=== PATIENT | male | born 1990 | race Two or more races ===

== ENCOUNTER 2022-12-31 11:51 | Inpatient (IN) | payer OTHER, MEDICAID ==
[~2022-12-31] VITALS: Ht 175.3 cm; Wt 86.0 kg
[2022-12-31] MEDS ORDERED: MORPHINE SULFATE 4 MG/ML SYR/VIAL IV ONE (12:30)
[2022-12-31] MEDS ORDERED: ONDANSETRON HCL 4 MG/2 ML VIAL IV ONE (12:30)
[2022-12-31 12:41] LABS: Urine Bacteria NONE SEEN /hpf (None Seen); Urine Blood Negative /uL (Negative); Urine Clarity Clear (Clear); Urine Color Yellow (Yellow); Urine Mucus FEW (None Seen); Urine Protein, UAD TRACE (Negative); Urine Specific Gravity 1.021 (1.001-1.035); Urine Urobilinogen Normal (Negative); Urine WBC 1 /hpf (0 - 3); Urine pH 5.5 (5.0-8.0)
[2022-12-31 13:17] LABS: Basophils # (auto) 0 10 ^3/uL (0-0.2); Basophils % (auto) 0.3 % (0.0-2.0); Eosinophils # (auto) 0.3 10 ^3/uL (0-0.8); Eosinophils % (auto) 4.7 % (0.0-7.0); Hematocrit 38.6 % (41.0-53.0); Hemoglobin 12.6 g/dL (13.5-17.5); Lymphocytes # (auto) 1.2 10 ^3/uL (0.4-5.4); Lymphocytes % (auto) 22.2 % (10.0-50.0); Mean Corpuscular Hemoglobin 27.4 pg (28.0-32.0); Mean Corpuscular Hgb Conc. 32.6 g/dL (32.0-36.0); Mean Corpuscular Volume 84.1 fL (80.0-100.0); Monocytes # (auto) 0.7 10 ^3/uL (0-1.3); Monocytes % (auto) 12.3 % (0.0-12.0); Neutrophils # (auto) 3.3 10 ^3/uL (1.6-8.6); Neutrophils % (auto) 60.5 % (37.0-80.0); Red Blood Cells 4.58 10^6/uL (4.5-5.90); Red Cell Distribution Width 13.1 % (11.8-14.3); White Blood Cell 5.4 10^3/uL (4.4-10.8)
[2022-12-31 13:33] LABS: INR 1.14 (0.9-1.15); Partial Thromboplastin Time 31.7 SEC (24.5-34.5); Prothrombin Time 11.9 sec (9.3-11.8)
[2022-12-31 13:51] LABS: Alanine Aminotransferase 16 U/L (7-40); Albumin 4.1 g/dL (3.2-4.8); Alkaline Phosphatase 56 U/L (46-116); Anion Gap 6.7 (5-15); Aspartate Aminotransferase < 8 U/L (13-40); BUN/Creatinine Ratio 5.7 (10.0-20.0); Bilirubin, Total 0.4 mg/dL (0.2-1.0); Blood Urea Nitrogen 6 mg/dL (9-23); Calcium 8.8 mg/dL (8.5-10.1); Carbon Dioxide 28.3 mmol/L (20-30); Chloride 104 mmol/L (98-107); Glucose 99 mg/dL (74-106); Potassium 3.9 mmol/L (3.5-5.1); Sodium 139 mmol/L (136-145); Total Protein 6.5 g/dL (5.7-8.2)
[2022-12-31] MEDS ORDERED: PIPERACILLIN-TAZOB 3.375GM 100 ML IV ONE (14:00)
[2022-12-31] MEDS ORDERED: metroNIDAZOLE 500MG/100ML 100 ML IV ONE (14:00)
[2022-12-31] MEDS ORDERED: PANTOPRAZOLE 40 MG/10 ML VIAL INJ IV ONE (14:45)
[2022-12-31] MEDS ORDERED: MORPHINE SULFATE INJ 2 MG/ml SYRG IV PRN (14:45)
[2022-12-31] MEDS ORDERED: ONDANSETRON HCL 4 MG/2 ML VIAL IV PRN (14:45)
[2022-12-31] MEDS ORDERED: ACETAMINOPHEN 325 MG TAB PO PRN (14:45)
[2022-12-31] MEDS ORDERED: HYDROcodone-ACET 5/325MG TAB PO PRN (14:45)
[2022-12-31] MEDS: SODIUM CHLORIDE 0.9% 1,000 ML IV SCH ×2 (15:36→21:25)
[2022-12-31 16:59] VITALS: O2SAT 98
[2022-12-31] MEDS ORDERED: metroNIDAZOLE 500MG/100ML 100 ML IV SCH (22:00)
[2022-12-31] MEDS: PIPERACILLIN-TAZOB 3.375GM 100 ML IV SCH (22:38)
[2022-12-31] MEDS: PANTOPRAZOLE 40 MG/10 ML VIAL INJ IV SCH (22:39)
[2023-01-01] VITALS (7 sets, daily range): BP systolic 112–160; BP diastolic 54–74; PULSE 67–85; RESP 16–23; TEMP 98.4–98.8; O2SAT 96–100
[2023-01-01] MEDS: SODIUM CHLORIDE 0.9% 1,000 ML IV SCH ×2 (05:13→10:41)
[2023-01-01 06:01] LABS: Alkaline Phosphatase 46 U/L (46-116); BUN/Creatinine Ratio 6.4 (10.0-20.0); Blood Urea Nitrogen 6 mg/dL (9-23); Calcium 8.3 mg/dL (8.5-10.1); Chloride 105 mmol/L (98-107); Glucose 103 mg/dL (74-106); Potassium 3.7 mmol/L (3.5-5.1); Sodium 139 mmol/L (136-145)
[2023-01-01 06:02] LABS: Albumin 3.5 g/dL (3.2-4.8); Aspartate Aminotransferase < 8 U/L (13-40); Basophils # (auto) 0 10 ^3/uL (0-0.2); Basophils % (auto) 0.5 % (0.0-2.0); Bilirubin, Total 0.5 mg/dL (0.2-1.0); Eosinophils # (auto) 0.2 10 ^3/uL (0-0.8); Eosinophils % (auto) 3.5 % (0.0-7.0); Hematocrit 30.9 % (41.0-53.0); Hemoglobin 10.6 g/dL (13.5-17.5); Lymphocytes # (auto) 0.8 10 ^3/uL (0.4-5.4); Mean Corpuscular Hemoglobin 28.4 pg (28.0-32.0); Mean Corpuscular Hgb Conc. 34.3 g/dL (32.0-36.0); Mean Corpuscular Volume 82.6 fL (80.0-100.0); Monocytes # (auto) 0.7 10 ^3/uL (0-1.3); Monocytes % (auto) 14.9 % (0.0-12.0); Neutrophils # (auto) 2.8 10 ^3/uL (1.6-8.6); Neutrophils % (auto) 64.1 % (37.0-80.0); Red Blood Cells 3.74 10^6/uL (4.5-5.90); Red Cell Distribution Width 13.5 % (11.8-14.3); Total Protein 5.8 g/dL (5.7-8.2); White Blood Cell 4.4 10^3/uL (4.4-10.8)
[2023-01-01 06:19] LABS: Alanine Aminotransferase < 9 U/L (7-40)
[2023-01-01] MEDS: PIPERACILLIN-TAZOB 3.375GM 100 ML IV SCH ×2 (06:53→13:47)
[2023-01-01] MEDS: PANTOPRAZOLE 40 MG/10 ML VIAL INJ IV SCH (09:40)
[2023-01-01] MEDS: D5W/SOD CHL 0.45%/KCL 20MEQ 1,000 ML IV SCH ×2 (11:20→21:00)
[2023-01-01] MEDS: metroNIDAZOLE 500MG/100ML 100 ML IV SCH (23:44)
[2023-01-02] VITALS (7 sets, daily range): BP systolic 115–130; BP diastolic 49–61; PULSE 69–93; RESP 14–20; TEMP 97.8–98.8; O2SAT 96–100
[2023-01-02] MEDS: metroNIDAZOLE 500MG/100ML 100 ML IV SCH (06:00)
[2023-01-02 07:04] LABS: Chloride 105 mmol/L (98-107); Potassium 3.6 mmol/L (3.5-5.1); Sodium 139 mmol/L (136-145)
[2023-01-02 07:05] LABS: Anion Gap 5.9 (5-15); Calcium 8.6 mg/dL (8.7-10.4); Carbon Dioxide 28.1 mmol/L (20-30)
[2023-01-02] MEDS: D5W/SOD CHL 0.45%/KCL 20MEQ 1,000 ML IV SCH ×2 (07:07→17:00)
[2023-01-02 07:10] LABS: Glucose 93 mg/dL (74-106)
[2023-01-02 07:12] LABS: BUN/Creatinine Ratio 5.6 (10.0-20.0); Blood Urea Nitrogen < 5 mg/dL (9-23)
[2023-01-02 07:31] LABS: Basophils # (auto) 0 10 ^3/uL (0-0.2); Basophils % (auto) 0.8 % (0.0-2.0); Eosinophils # (auto) 0.3 10 ^3/uL (0-0.8); Eosinophils % (auto) 7.1 % (0.0-7.0); Hematocrit 31.8 % (41.0-53.0); Hemoglobin 10.6 g/dL (13.5-17.5); Lymphocytes # (auto) 0.7 10 ^3/uL (0.4-5.4); Lymphocytes % (auto) 15.4 % (10.0-50.0); Mean Corpuscular Hemoglobin 27.7 pg (28.0-32.0); Mean Corpuscular Hgb Conc. 33.5 g/dL (32.0-36.0); Mean Corpuscular Volume 82.8 fL (80.0-100.0); Monocytes # (auto) 0.6 10 ^3/uL (0-1.3); Monocytes % (auto) 12.1 % (0.0-12.0); Neutrophils % (auto) 64.6 % (37.0-80.0); Red Blood Cells 3.84 10^6/uL (4.5-5.90); Red Cell Distribution Width 13.2 % (11.8-14.3); White Blood Cell 4.7 10^3/uL (4.4-10.8)
[2023-01-02] MEDS ORDERED: cefTRIAXone 1GM/50ML D5W 50 ML IV SCH (09:00)
[2023-01-02] MEDS: PANTOPRAZOLE 40 MG/10 ML VIAL INJ IV SCH (09:11)
[2023-01-02] MEDS: PIPERACILLIN-TAZOB 3.375GM 100 ML IV SCH ×2 (15:40→21:00)
[2023-01-02] MEDS ORDERED: GOLYTELY 4L KIT PO ONE (17:00)
[2023-01-03] VITALS (8 sets, daily range): BP systolic 103–123; BP diastolic 47–67; PULSE 71–93; RESP 15–19; TEMP 97.7–98.3; O2SAT 93–100
[2023-01-03] MEDS: D5W/SOD CHL 0.45%/KCL 20MEQ 1,000 ML IV SCH ×3 (03:00→23:00)
[2023-01-03] MEDS: PIPERACILLIN-TAZOB 3.375GM 100 ML IV SCH ×4 (03:00→21:20)
[2023-01-03] MEDS ORDERED: POLYETHYLENE GLYCOL 17 GM PWDR PO ONE (06:00)
[2023-01-03] MEDS: PANTOPRAZOLE 40 MG/10 ML VIAL INJ IV SCH (10:47)
[2023-01-03] MEDS ORDERED: SODIUM CHLORIDE LOCK 10 ML ONE (15:37)
[2023-01-03] MEDS: diphenhdrAMINE HCL 50 MG/1 ML VL ONE ×2 (15:48→15:50)
[2023-01-03] MEDS: fentaNYL CITRATE 100 MCG/2 ML VL ONE ×2 (15:48→15:51)
[2023-01-03] MEDS: MIDAZOLAM HCL 5 MG/ML-1ML VIAL ONE ×3 (15:48→15:54)
[2023-01-03] MEDS ORDERED: fentaNYL CITRATE 100 MCG/2 ML VL ONE (15:54)
[2023-01-03] MEDS: methylPREDNISolone SOD SUCC 40 MG/ML VL IV SCH (18:15)
[2023-01-03] MEDS: MESALAMINE 400mg Delayed Release Cap PO SCH (21:20)
[2023-01-04] VITALS (7 sets, daily range): BP systolic 105–118; BP diastolic 60–68; PULSE 65–88; RESP 17–20; TEMP 97.6–98.4; O2SAT 96–99
[2023-01-04] MEDS: methylPREDNISolone SOD SUCC 40 MG/ML VL IV SCH ×4 (00:22→18:24)
[2023-01-04] MEDS: PIPERACILLIN-TAZOB 3.375GM 100 ML IV SCH ×4 (02:17→21:35)
[2023-01-04] MEDS: MESALAMINE 400mg Delayed Release Cap PO SCH ×3 (06:39→21:36)
[2023-01-04 08:29] LABS: Anion Gap 9.5 (5-15); Carbon Dioxide 24.5 mmol/L (20-30); Chloride 106 mmol/L (98-107); Potassium 4.1 mmol/L (3.5-5.1); Sodium 140 mmol/L (136-145)
[2023-01-04 08:30] LABS: Calcium 8.8 mg/dL (8.5-10.1)
[2023-01-04 08:35] LABS: Glucose 156 mg/dL (74-106)
[2023-01-04 08:47] LABS: BUN/Creatinine Ratio 5.6 (10.0-20.0); Blood Urea Nitrogen < 5 mg/dL (9-23)
[2023-01-04] MEDS: D5W/SOD CHL 0.45%/KCL 20MEQ 1,000 ML IV SCH ×2 (09:07→19:03)
[2023-01-04] MEDS: PANTOPRAZOLE 40 MG/10 ML VIAL INJ IV SCH (10:24)
[2023-01-04 10:36] LABS: Erythrocyte Sedimentation Rate 27 mm/hr (0-20)
[2023-01-05] MEDS: PIPERACILLIN-TAZOB 3.375GM 100 ML IV SCH (03:51)
[2023-01-05 05:00] VITALS: BP 105/69; PULSE 70; RESP 17; TEMP 97.6; O2SAT 97
[2023-01-05] MEDS: D5W/SOD CHL 0.45%/KCL 20MEQ 1,000 ML IV SCH (05:00)
[2023-01-05] MEDS: methylPREDNISolone SOD SUCC 40 MG/ML VL IV SCH ×2 (05:54)
[2023-01-05] MEDS: MESALAMINE 400mg Delayed Release Cap PO SCH (05:54)
[2023-01-05] MEDS ORDERED: METR-344 PO ×2 (07:54→10:51)
[2023-01-05] MEDS ORDERED: PRED20TA2 PO ×2 (07:54→10:51)
[2023-01-05] MEDS ORDERED: MESA400C PO ×2 (07:54→10:51)
[2023-01-05] MEDS ORDERED: LEVO500T91 PO ×2 (07:54→10:51)
[2023-01-05 08:00] VITALS: PULSE 56; RESP 20; O2SAT 98
[2023-01-05 08:52] VITALS: BP 112/61; PULSE 56; RESP 20; TEMP 97.4; O2SAT 98
[2023-01-05] MEDS ORDERED: PIPERACILLIN-TAZOB 3.375GM 100 ML IV SCH (10:00)
[2023-01-05] MEDS: PANTOPRAZOLE 40 MG/10 ML VIAL INJ IV SCH (10:19)
== END 2023-01-05 11:43 | disposition home or self-care (01) | DRG 386 ==
LOC: ER 11:51 → OVERFLOW 14:54 → WEST WING 01-01 09:25
PROVIDERS: ADMIT Nurse Practitioner Family; ATTEND Nurse Practitioner Acute Care
PROC: 0DBE8ZX Excision of Large Intestine, Via Natural or Artificial Opening Endoscopic, Diagnostic (ICD-10-PCS; principal; 2023-01-03 15:41)
DX: K51.00 Ulcerative (chronic) pancolitis without complications (principal); K57.92 Diverticulitis of intestine, part unspecified, without perforation or abscess without bleeding; D64.9 Anemia, unspecified; I10 Essential (primary) hypertension
CPT/HCPCS: 36415; 45380; 71045; 74176; 74177; 76705; 80048; 80053; 81001; 85025; 85048; 85610; 85652; 85730; 86141; 86850; 86900; 86901; 87177; 87493; C9113; G0378; J0696; J2250; J2405; J2543; J3490

== ENCOUNTER → 2023-03-19 | Outpatient (CLI) | payer OTHER, MEDICAID ==
[~2023-03-19] MED LIST: LEVO500T91 PO; MESA400C PO; METR-344 PO; PRED20TA2 PO
[2023-03-19 11:58] LABS: Basophils # (auto) 0 10 ^3/uL (0-0.2); Eosinophils # (auto) 0.1 10 ^3/uL (0-0.8); Lymphocytes # (auto) 1.1 10 ^3/uL (0.4-5.4); Monocytes # (auto) 0.4 10 ^3/uL (0-1.3)
[2023-03-19 12:01] LABS: Basophils % (auto) 0.5 % (0.0-2.0); Hematocrit 38.8 % (41.0-53.0); Hemoglobin 12.5 g/dL (13.5-17.5); Mean Corpuscular Hemoglobin 26.6 pg (28.0-32.0); Mean Corpuscular Hgb Conc. 32.2 g/dL (32.0-36.0); Mean Corpuscular Volume 82.5 fL (80.0-100.0); Monocytes % (auto) 5.8 % (0.0-12.0); Neutrophils # (auto) 5.5 10 ^3/uL (1.6-8.6); Neutrophils % (auto) 76.7 % (37.0-80.0); Nucleated Red Blood Cells % 0.1 %; Red Cell Distribution Width 15.6 % (11.8-14.3); White Blood Cell 7.1 10^3/uL (4.4-10.8)
[2023-03-19 12:40] LABS: Alanine Aminotransferase 26 U/L (7-40); Albumin 4.3 g/dL (3.2-4.8); Alkaline Phosphatase 65 U/L (46-116); Anion Gap 2 (5-15); Aspartate Aminotransferase 13 U/L (13-40); BUN/Creatinine Ratio 10.2 (10.0-20.0); Bilirubin, Total 0.4 mg/dL (0.2-1.0); Blood Urea Nitrogen 10 mg/dL (9-23); Calcium 8.9 mg/dL (8.7-10.4); Carbon Dioxide 30 mmol/L (20-30); Chloride 107 mmol/L (98-107); Glucose 102 mg/dL (74-106); Potassium 4.7 mmol/L (3.5-5.1); Sodium 139 mmol/L (136-145); Total Protein 6.8 g/dL (5.7-8.2)
== END | disposition home or self-care (01) ==
LOC: LAB 11:30
PROVIDERS: ATTEND Internal Medicine Gastroenterology
DX: K50.90 Crohn's disease, unspecified, without complications (principal)
CPT/HCPCS: 36415; 80053; 85025

== ENCOUNTER 2023-09-12 09:51 | Emergency (ER) | payer OTHER, MEDICAID ==
[~2023-09-12] VITALS: Ht 175.3 cm; Wt 92.6 kg
[2023-09-12 11:08] LABS: Basophils # (auto) 0 10 ^3/uL (0-0.2); Basophils % (auto) 0.5 % (0.0-2.0); Eosinophils # (auto) 0.1 10 ^3/uL (0-0.8); Eosinophils % (auto) 3.2 % (0.0-7.0); Hematocrit 40.2 % (41.0-53.0); Hemoglobin 13.2 g/dL (13.5-17.5); Lymphocytes # (auto) 1.3 10 ^3/uL (0.4-5.4); Lymphocytes % (auto) 34.1 % (10.0-50.0); Mean Corpuscular Hemoglobin 27.8 pg (28.0-32.0); Mean Corpuscular Hgb Conc. 32.7 g/dL (32.0-36.0); Monocytes # (auto) 0.5 10 ^3/uL (0-1.3); Monocytes % (auto) 12.9 % (0.0-12.0); Neutrophils # (auto) 1.9 10 ^3/uL (1.6-8.6); Neutrophils % (auto) 49.3 % (37.0-80.0); Nucleated Red Blood Cells % 0.1 %; Red Blood Cells 4.73 10^6/uL (4.5-5.90); Red Cell Distribution Width 15.9 % (11.8-14.3); White Blood Cell 3.8 10^3/uL (4.4-10.8)
[2023-09-12 11:33] LABS: Alanine Aminotransferase 27 U/L (7-40); Albumin 4.5 g/dL (3.2-4.8); Alkaline Phosphatase 72 U/L (46-116); Anion Gap 2 (5-15); Aspartate Aminotransferase 14 U/L (13-40); BUN/Creatinine Ratio 11.5 (10.0-20.0); Bilirubin, Total 0.5 mg/dL (0.2-1.0); Blood Urea Nitrogen 12 mg/dL (9-23); Calcium 9.4 mg/dL (8.5-10.1); Carbon Dioxide 31 mmol/L (20-30); Chloride 108 mmol/L (98-107); Glucose 94 mg/dL (74-106); Potassium 4.2 mmol/L (3.5-5.1); Sodium 141 mmol/L (136-145)
[2023-09-12 12:18] LABS: Lipase 39 U/L (12-53)
[2023-09-12 13:39] VITALS: BP 112/60; PULSE 67; RESP 16; TEMP 98.1; O2SAT 98
== END 2023-09-12 14:29 | disposition home or self-care (01) ==
LOC: ER 09:51
DX: R10.84 Generalized abdominal pain (principal); Z79.899 Other long term (current) drug therapy; Z88.8 Allergy status to other drugs, medicaments and biological substances
CPT/HCPCS: 36415; 74176; 80053; 83690; 85025

== ENCOUNTER 2024-07-30 10:09 | Inpatient (IN) | payer MEDICAID, OTHER ==
[~2024-07-30] VITALS: Ht 175.3 cm; Wt 84.3 kg
--- NOTE | 2024-07-30 10:37 | ED.PDOC ---
GI ASSESSMENT HPI Comments 34y M who presents to the ED for chief complaint of abdominal pain. Pt states he has been having abdominal pain for the past 5 days. Pt states the pain is suprapubic in location, constant, rating the pain 10/10, non-radiating with no associated exacerbating or relieving factors. Pt has associated diarrhea with associated fatigue but otherwise denies vomiting, diarrhea, fever , chills, dysuria, or hematuria. Pt states the diarrhea has associated blood and mucus. Pt states he had prior history of diverticulitis and UC and states he had flare up of his diverticulitis 1 year prior and states he was hospitalized at . Pt otherwise denies any other symptoms at this time. Chief Complaint: Abdominal Pain Time Seen by MD: 10:34 Reviewed Notes: Medications, Allergies Allergies: Coded Allergies: Metronidazole (Verified Allergy, Unknown, diarrhea, bloody stool, 01/02/23) Home Meds Active Scripts Prednisone (Prednisone) 20 Mg Tab, 40 MG PO DAILY, #60 MG Prov:DEMOND LOPEZ MD 01/05/23 Mesalamine (DELZICOL) 400 Mg Cap, 800 MG PO TID for 30 Days, #120 CAP 5 Refills Prov:DEMOND LOPEZ MD 01/05/23 Metronidazole (Flagyl) 500 Mg Tab, 1 TAB PO TID, #30 TAB Prov:DEMOND LOPEZ MD 01/05/23 Levofloxacin Hemihydrate (LEVAQUIN 500 MG) 500 Mg Tab, 1 TAB PO DAILY, #10 TAB Prov:DEMOND LOPEZ MD 01/05/23 Metronidazole (Flagyl) 500 Mg Tab, 1 TAB PO TID, #30 TAB Prov:DEMOND LOPEZ MD 01/05/23 Levofloxacin Hemihydrate (LEVAQUIN 500 MG) 500 Mg Tab, 1 TAB PO DAILY, #10 TAB Prov:DEMOND LOPEZ MD 01/05/23 Prednisone (Prednisone) 20 Mg Tab, 40 MG PO DAILY for 30 Days, #60 MG Prov:DEMOND LOPEZ MD 01/05/23 Mesalamine (DELZICOL) 400 Mg Cap, 800 MG PO TID, #60 CAP 5 Refills Prov:DEMOND LOPEZ MD 01/05/23 Information Source: Patient Mode of Arrival: Ambulatory Brought in by: self Timing: Days Duration: Since onset Prehospital treatment: None Quality: Aching Vomitus: None Stool: Blood Streaked Severity: Moderate Recent: None Recent Hx of: IBD Pain Location: Suprapubic Modifying Factors: Nothing Associated sign and symptoms: Diarrhea, Abdominal Pain, Blood in Stool Past Medical History Past Medical History (Other): Ulcerative colitis, Surgical History: Denies all surgeries Family History Family History: Family hx of heart latasha Family History (Other): Parkinsonism Social History Smoker: Non-Smoker Alcohol: Occasionally Drugs: Denies Drug Use Lives In: Home Constitutional: reports: fatigue; denies: chills, diaphoresis, fever, malaise, sweats, weakness, others EENTM: denies: blurred vision, double vision, ear bleeding, ear discharge, ear drainage, ear pain, ear ringing, eye pain, eye redness, hearing loss, mouth pain, mouth swelling, nasal discharge, nose bleeding, nose congestion, nose pain, photophobia, tearing, throat pain, throat swelling, voice changes, others Respiratory: denies: cough, hemoptysis, orthopnea, SOB at rest, shortness of breath, SOB with excertion, stridor, wheezing, others Cardiovascular: denies: chest pain, dizzy spells, diaphoresis, Dyspnea on exer tion, edema, irregular heart beat, left arm pain, lightheadedness, palpitations, PND, syncope, others Gastrointestinal: reports: abdominal pain, diarrhea; denies: abdomen distended, blood streaked bowels, constipated, dysphagia, difficulty swallowing, hematemesis, melena, nausea, poor appetite, poor fluid intake, rectal bleeding, rectal pain, vomiting, others Genitourinary: denies: burning, dysuria, flank pain, frequency, hematuria, incontinence, penile discharge, penile sore, pain, testicle pain, testicle swelling, urgency, others Neurological: denies: dizziness, fainting, headache, left sided numbness, left sided weakness, numbness, paresthesia, pre-existing deficit, right sided numbness, right sided weakness, seizure, speech problems, tingling, tremors, weakness, others Musculoskeletal: denies: back pain, gout, joint pain, joint swelling, muscle pain, muscle stiffness, neck pain, others Integumetry: denies: bruises, change in color, change in hair/nails, dryness, laceration, lesions, lumps, rash, wounds, others Allergic/Immunocompromised: denies: Difficulty Healing, Frequent Infections, Hives, Itching, others Hematologic/Lymphatic: denies: anemia, blood clots, easy bleeding, easy bruising, swollen glands, others Endocrine: denies: excessive hunger, excessive sweating, excessive thirst, excessive urination, flushing, intolerance to cold, intolerance to heat, unexplained weight gain, unexplained weight loss, others Psychiatric: denies: anxiety, bipolar disorder, depression, hopeless, panic disorder, schizophrenia, sleepless, suicidal, others All Other Systems: Reviewed and Negative Physical Exam General Appearance: Moderate Distress HEENT: Normal ENT Inspection, Pharynx Normal, TMs Normal Neck: Full Range of Motion, Non-Tender, Normal, Normal Inspection Respiratory: Chest Non-Tender, Lungs Clear, No Accessory Muscle Use, No Respiratory Distress, Normal Breath Sounds Cardiovascular: No Edema, No JVD, No Murmur, No Gallop, Normal Peripheral Pulses, Regular Rate/Rhythm Breast Exam: Deferred Gastrointestinal: Diffuse, No Organomegaly, No Pulsatile Mass, Normal Bowel Sounds, Soft, Tenderness Genitalia: Deferred Pelvic: Deferred Rectal: Deferred Extremities: No calf tenderness, Normal capillary refill, Normal inspection, Normal range of motion, Non-tender, No pedal edema Musculoskeletal : Apperance: Normal Neurologic: Alert, 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 Was a procedure done?: No GI differential Dx Differential Diagnosis: Constipation, Diverticular disease, Gastritis/PUD, Gastroenteritis, GI hemorrhage, Dehydration, Electrolyte Imbalance, Food Poisoning, Bacterial, Viral, Anemia X-Ray, Labs, Meds, VS Vital Signs Date Time Temp Pulse Resp B/P (MAP) Pulse Ox O2 Delivery O2 Flow Rate FiO2 07/30/24 11:14 80 18 138/62 07/30/24 11:03 97.6 83 18 142/60 (87) 97 97.6 07/30/24 11:03 83 18 97 Room Air 07/30/24 10:53 83 18 142/60 07/30/24 10:28 98.3 77 18 118/53 (74) 98 98.3 Lab Test 07/30/24 11:23 07/30/24 10:46 Range/Units Urine Color Yellow Yellow Urine Clarity Clear Clear Urine pH 7.0 5.0-9.0 Urine Specific [place] 1.027 1.001-1.035 Urine Protein Trace H Negative Urine Ketones Negative Negative Urine Blood Negative Negative /uL Urine Nitrite Negative Negative Urine Bilirubin Negative Negative Urine Urobilinogen Normal Negative mg/dL Urine Leukocyte Esterase Negative Negative /uL Urine RBC 4 0 - 3 /hpf Urine Microscopic WBC 1 0-3 /HPF Urine Squamous Epithelial Cells None seen <5 /hpf Urine Bacteria None seen None Seen /hpf Urine Glucose Normal Normal mg/dL White Blood Count 4.6 4.4-10.8 10^3/uL Red Blood Count 4.65 4.5-5.90 10^6/uL Hemoglobin 9.9 L 13.5-17.5 g/dL Hematocrit 31.9 L 41.0-53.0 % Mean Corpuscular Volume 68.6 L 80.0-100.0 fL Mean Corpuscular Hemoglobin 21.2 L 28.0-32.0 pg Mean Corpuscular Hemoglobin Concent 31.0 L 32.0-36.0 g/dL Red Cell Distribution Width 18.9 H 11.8-14.3 % Platelet Count 406 140-450 10^3/uL Mean Platelet Volume 6.5 L 6.9-10.8 fL Neutrophils (%) (Auto) 74.6 37.0-80.0 % Lymphocytes (%) (Auto) 13.6 10.0-50.0 % Monocytes (%) (Auto) 10.9 0.0-12.0 % Eosinophils (%) (Auto) 0.5 0.0-7.0 % Basophils (%) (Auto) 0.4 0.0-2.0 % Neutrophils # (Auto) 3.5 1.6-8.6 10 ^3/uL Lymphocytes # (Auto) 0.6 0.4-5.4 10 ^3/uL Monocytes # (Auto) 0.5 0-1.3 10 ^3/uL Eosinophils # (Auto) 0 0-0.8 10 ^3/uL Basophils # (Auto) 0 0-0.2 10 ^3/uL Nucleated Red Blood Cells 0.0 % Platelet Estimate [place] Large Platelets Hypochromasia (manual) Moderate Microcytosis Marked Stomatocytes Sodium Level 141 136-145 mmol/L Potassium Level 4.0 3.5-5.1 mmol/L Chloride Level 106 98-107 mmol/L Carbon Dioxide Level 29 20-31 mmol/L Anion Gap 6 5-15 Blood Urea Nitrogen 17 9-23 mg/dL Creatinine 1.10 0.700-1.30 mg/dL Glomerular Filtration Rate Calc 90 >90 mL/min BUN/Creatinine Ratio 15.5 10.0-20.0 Serum Glucose 100 74-106 mg/dL Calcium Level 9.3 8.7-10.4 mg/dL Total Bilirubin 0.4 0.2-1.0 mg/dL Aspartate Amino Transferase (AST) < 8 L 13-40 U/L Alanine Aminotransferase (ALT) 20 7-40 U/L Alkaline Phosphatase 68 46-116 U/L Total Protein 7.1 5.7-8.2 g/dL Albumin 4.5 3.2-4.8 g/dL Current Medications Medications (Trade) Dose Ordered Sig/Jeremy Route Start Time Stop Time Status Last Admin Ondansetron HCl (Zofran) 4 mg ONCE ONCE IV 07/30/24 10:45 07/30/24 10:46 DC 07/30/24 10:46 Morphine Sulfate 4 mg ONCE ONCE IV 07/30/24 10:45 07/30/24 10:46 DC 07/30/24 10:53 Sodium Chloride 500 ml @ 500 mls/hr Q1H ONCE IVB 07/30/24 10:45 07/30/24 11:44 DC 07/30/24 10:53 Exam: CT CT AB PEL WO CON-NO ORAL OR IV IMPRESSION: 1. Wall thickening of the transverse colon and descending colon which may represent acute colitis in the appropriate clinical setting. 2. Fecal retention in the cecum and ascending colon. No bowel obstruction. IV Hep-Lock was established The patient was given normal saline at a 500 cc bolus The patient was given Zofran 4 mg IV push for the nausea The patient was given morphine 4 mg IV push for the pain The patient's CBC shows anemia with a hemoglobin of 9.9 and hematocrit of 31.9 The urine test is negative The patient was being admitted at this time Images Reviewed?: Images reviewed and evaluated by me Time of 1ST Reevaluation: 11:05 Reevaluation 1ST: Unchanged Patient Education/Counseling: Diagnosis, Treatment, Prognosis Family Education/Counseling: No Family Present Additional Information -Reviewed patient's previous visit(s): - The following tests were ordered, and results were reviewed by me: cbc, cmp, ua ct-abd pelvis non-con, type and screen, rbc morphology - Additional information was gathered from interviewing the following independent Historian: none - I reviewed and agreed with the following test results read by other provider: radiologist - I discussed treatments and results with medical personnel and: patient Comprehensive systems review obtained and negative except for what is stated in the HPI. Departure 1 Departure Time of Disposition: 12:10 Impression: Primary Impression: Intractable abdominal pain Additional Impression: Colitis Disposition: ADMITTED INPATIENT Admit to: Med Surg Condition: Fair Critical Care Note Critical Care Time?: No Stability Stability form required: Yes Unstable for transfer: ED Physician Assesment (Clinical assesment) Heart Score Heart Score: Heart Score Response (Comments) Value History N/A 0 EKG N/A 0 Age N/A 0 Risk Factors N/A 0 Troponin N/A 0 Total 0 I personally scribed for LOR CHRISTIAN MD ([email or web address]) on 07/30/24 at 10:37. Electronically submitted by Dannielle Rouse ([email or web address]). I personally scribed for LOR CHRISTIAN MD ([email or web address]) on 07/30/24 at 11:33. Electronically submitted by Dannielle Rouse ([email or web address]). I personally scribed for LOR CHRISTIAN MD (DAYLIN) on 07/30/24 at 11:33. Electronically submitted by Dannielle Rouse ([email or web address]). I personally scribed for LOR CHRISTIAN MD ([email or web address]) on 07/30/24 at 11:52. Electronically submitted by Dannielle [employer]). LOR CHRISTIAN MD Jul 30, 2024 10:37
[2024-07-30] MEDS: ONDANSETRON HCL 4 MG/2 ML VIAL IV ONE ×2 (10:46→19:11)
[2024-07-30] MEDS: SODIUM CHLORIDE 0.9% 500 ML IVB ONE (10:53)
[2024-07-30] MEDS: MORPHINE SULFATE 4 MG/ML SYR/VIAL IV ONE ×2 (10:53→17:06)
[2024-07-30 11:05] LABS: Basophils # (auto) 0 10 ^3/uL (0-0.2); Eosinophils # (auto) 0 10 ^3/uL (0-0.8); Eosinophils % (auto) 0.5 % (0.0-7.0); Hemoglobin 9.9 g/dL (13.5-17.5); Monocytes # (auto) 0.5 10 ^3/uL (0-1.3); White Blood Cell 4.6 10^3/uL (4.4-10.8)
[2024-07-30 11:07] LABS: Basophils % (auto) 0.4 % (0.0-2.0); Hematocrit 31.9 % (41.0-53.0); Lymphocytes # (auto) 0.6 10 ^3/uL (0.4-5.4); Lymphocytes % (auto) 13.6 % (10.0-50.0); Mean Corpuscular Hemoglobin 21.2 pg (28.0-32.0); Mean Corpuscular Volume 68.6 fL (80.0-100.0); Monocytes % (auto) 10.9 % (0.0-12.0); Neutrophils # (auto) 3.5 10 ^3/uL (1.6-8.6); Neutrophils % (auto) 74.6 % (37.0-80.0); Platelet Count (auto) 406 10^3/uL (140-450); Red Blood Cells 4.65 10^6/uL (4.5-5.90); Red Cell Distribution Width 18.9 % (11.8-14.3)
--- NOTE | 2024-07-30 11:07 | DVH ---
Exam: CT CT AB PEL WO CON-NO ORAL OR IV History: pain Comparison Study: CT scan of the abdomen pelvis performed on 07/28/2024. Technique: Multidetector spiral CT of the abdomen and pelvis was performed from lung bases to pubic s ymphysis. Imaging was performed without intravenous contrast. Coronal and sagittal multiplanar reform ats were obtained from the axial data set by the technologist. Radiation Dose : 1. Abdomen/Pelvis: CTDIvol 8.01 mGy, DLP 441.84 mGy*cm. Findings: Evaluation of vasculature and solid organs is limited due to lack of intravenous contrast use. Lung Bases: Lung bases are clear. Visualized portions of the heart and pericardium are unremarkable. Liver: The liver is normal in size. No focal lesions. Gallbladder and Biliary Tree: The gallbladder is unremarkable. No intrahepatic or extrahepatic biliar y ductal dilatation. Spleen: Unremarkable Pancreas: The pancreas is grossly unremarkable. Adrenal Glands: Unremarkable Kidneys: Kidneys are unremarkable without calculi or hydronephrosis. GI tract: The stomach is grossly normal in appearance. No evidence of small bowel wall thickening or abnormal dilatation to suggest bowel obstruction. There is wall thickening of the transverse and desc ending colon. Copious stool in the ascending colon and cecum. Scattered colonic diverticula without a cute diverticulitis. Normal caliber appendix. Peritoneum/mesentery/retroperitoneum. No evidence of free intraperitoneal air. No ascites. No evidenc e of suspicious lymphadenopathy. Abdominal Wall: Unremarkable. Vasculature: The visualized abdominal aorta is normal in size and caliber. Evaluation of abdominal a nd pelvic vessels is limited due to lack of intravenous contrast. Urinary Bladder: Grossly unremarkable for degree of distention. Pelvic Organs: Unremarkable Musculoskeletal: No aggressive focal bony lesions, acute fractures or dislocation. IMPRESSION: 1. Wall thickening of the transverse colon and descending colon which may represent acute colitis in the appropriate clinical setting. 2. Fecal retention in the cecum and ascending colon. No bowel obstruction.
[2024-07-30 11:25] LABS: Alanine Aminotransferase 20 U/L (7-40); Albumin 4.5 g/dL (3.2-4.8); Alkaline Phosphatase 68 U/L (46-116); Anion Gap 6 (5-15); BUN/Creatinine Ratio 15.5 (10.0-20.0); Blood Urea Nitrogen 17 mg/dL (9-23); Calcium 9.3 mg/dL (8.7-10.4); Carbon Dioxide 29 mmol/L (20-31); Chloride 106 mmol/L (98-107); Glucose 100 mg/dL (74-106); Sodium 141 mmol/L (136-145); Total Protein 7.1 g/dL (5.7-8.2)
[2024-07-30 11:26] LABS: Aspartate Aminotransferase < 8 U/L (13-40); Bilirubin, Total 0.4 mg/dL (0.2-1.0)
[2024-07-30 11:30] LABS: Urine Bacteria None Seen /hpf (None Seen)
[2024-07-30 11:42] LABS: Hypochromia Moderate; Platelet Estimate Adequa
[2024-07-30 11:42] LABS: Urine Blood Negative /uL (Negative); Urine Clarity Clear (Clear); Urine Color Yellow (Yellow); Urine Protein, UAD TRACE (Negative); Urine Specific Gravity 1.027 (1.001-1.035); Urine Squamous Epithelial Cell None Seen /hpf (<5); Urine Urobilinogen Normal (Negative); Urine WBC 1 /HPF (0-3)
[2024-07-30] MEDS: metroNIDAZOLE 500MG/100ML 100 ML IV ONE (12:49)
[2024-07-30 17:48] VITALS: PULSE 72; RESP 10; O2SAT 99
[2024-07-30] MEDS ORDERED: ONDANSETRON HCL 4 MG/2 ML VIAL IV PRN (19:15)
[2024-07-30 19:44] VITALS: PULSE 69; RESP 10; O2SAT 96
--- NOTE | 2024-07-30 21:55 | DVHHP2 ---
History of Present Illness Reason for Visit: Abdominal pain History of Present Illness 34-year-old male presents for complaints of abdominal pain. Patient reports a five day history of lower abdominal pain that radiates to his epigastric region with associated bloody stools. Denies fever or chills. No shortness a breath. No other acute complaints reported. Past Medical History Ulcerative colitis Past Surgical History Denies Family History Heart disease Smoke: No ALCOHOL: occassional Drugs: None Lives: with Family Review of Systems Review of Systems Review of systems are currently negative otherwise addressed in HPI. Allergies: Coded Allergies: Metronidazole (Verified Allergy, Unknown, diarrhea, bloody stool, 01/02/23) Medications Current Medications Medications Dose Ordered Sig/Jeremy Route Start Time Stop Time Status Last Admin Dose Admin Pantoprazole Sodium 40 mg DAILY@0600 PO 07/31/24 06:00 Acetaminophen/ Hydrocodone Bitart 1 tab Q4HP PRN PO 07/30/24 19:15 Ondansetron HCl 4 mg Q4HP PRN IV 07/30/24 19:15 Acetaminophen 650 mg Q6HP PRN PO 07/30/24 19:15 Exam Vital Signs Vital Signs Date Time Temp Pulse Resp B/P (MAP) Pulse Ox O2 Delivery O2 Flow Rate FiO2 07/30/24 20:00 65 07/30/24 19:44 10 96 Room Air* 0 21 07/30/24 19:44 115/61 07/30/24 19:44 98.0 98.0 Exam Gen: 34-year-old male in mild distress Skin: Warm, dry, normal color and texture, no rash. HEENT: Normocephalic atraumatic, mucous membranes moist and pink. Neck: Cervical and supraclavicular nodes normal without enlargement, trachea is midline, thyroid gland is normal without masses. Pulmonary: Clear to auscultation and percussion bilaterally. Cardiac: Regular rate and rhythm. No murmur Abdomen: Soft, lower abdominal tenderness, nondistended, bowel sounds present all 4 quadrants, no guarding, no rigidity, no organomegaly. Extremities: No cyanosis, clubbing, no edema Neuro: Cranial nerves II through XII grossly intact, normal affect and speech, no focal motor deficits. Labs/Xrays ORDERING PHYSICIAN: LOR CHRISTIAN MD PROCEDURE(s): ABPL - CT AB PEL WO CON-NO ORAL OR IV REASON: pain ORDER NUMBER(s): [id number], ACCESSION NUMBER(s): [id number] Exam: CT CT AB PEL WO CON-NO ORAL OR IV History: pain Comparison Study: CT scan of the abdomen pelvis performed on 07/28/2024. Technique: Multidetector spiral CT of the abdomen and pelvis was performed from lung bases to pubic symphysis. Imaging was performed without intravenous contrast. Coronal and sagittal multiplanar reformats were obtained from the axial data set by the technologist. Radiation Dose : 1. Abdomen/Pelvis: CTDIvol 8.01 mGy, DLP 441.84 mGy*cm. Findings: Evaluation of vasculature and solid organs is limited due to lack of intravenous contrast use. Lung Bases: Lung bases are clear. Visualized portions of the heart and pericardium are unremarkable. Liver: The liver is normal in size. No focal lesions. Gallbladder and Biliary Tree: The gallbladder is unremarkable. No intrahepatic or extrahepatic biliary ductal dilatation. Spleen: Unremarkable Pancreas: The pancreas is grossly unremarkable. Adrenal Glands: Unremarkable Kidneys: Kidneys are unremarkable without calculi or hydronephrosis. GI tract: The stomach is grossly normal in appearance. No evidence of small bowel wall thickening or abnormal dilatation to suggest bowel obstruction. There is wall thickening of the transverse and descending colon. Copious stool in the ascending colon and cecum. Scattered colonic diverticula without acute diverticulitis. Normal caliber appendix. Peritoneum/mesentery/retroperitoneum. No evidence of free intraperitoneal air. No ascites. No evidence of suspicious lymphadenopathy. Abdominal Wall: Unremarkable. Vasculature: The visualized abdominal aorta is normal in size and caliber. Evaluation of abdominal and pelvic vessels is limited due to lack of intravenous contrast. Urinary Bladder: Grossly unremarkable for degree of distention. Pelvic Organs: Unremarkable Musculoskeletal: No aggressive focal bony lesions, acute fractures or dislocation. IMPRESSION: 1. Wall thickening of the transverse colon and descending colon which may represent acute colitis in the appropriate clinical setting. 2. Fecal retention in the cecum and ascending colon. No bowel obstruction. Labs Test 07/30/24 11:23 07/30/24 10:46 Range/Units Urine Color Yellow Yellow Urine Clarity Clear Clear Urine pH 7.0 5.0-9.0 Urine Specific [place] 1.027 1.001-1.035 Urine Protein Trace H Negative Urine Ketones Negative Negative Urine Blood Negative Negative /uL Urine Nitrite Negative Negative Urine Bilirubin Negative Negative Urine Urobilinogen Normal Negative mg/dL Urine Leukocyte Esterase Negative Negative /uL Urine RBC 4 0 - 3 /hpf Urine Microscopic WBC 1 0-3 /HPF Urine Squamous Epithelial Cells None seen <5 /hpf Urine Bacteria None seen None Seen /hpf Urine Glucose Normal Normal mg/dL White Blood Count 4.6 4.4-10.8 10^3/uL Red Blood Count 4.65 4.5-5.90 10^6/uL Hemoglobin 9.9 L 13.5-17.5 g/dL Hematocrit 31.9 L 41.0-53.0 % Mean Corpuscular Volume 68.6 L 80.0-100.0 fL Mean Corpuscular Hemoglobin 21.2 L 28.0-32.0 pg Mean Corpuscular Hemoglobin Concent 31.0 L 32.0-36.0 g/dL Red Cell Distribution Width 18.9 H 11.8-14.3 % Platelet Count 406 140-450 10^3/uL Mean Platelet Volume 6.5 L 6.9-10.8 fL Neutrophils (%) (Auto) 74.6 37.0-80.0 % Lymphocytes (%) (Auto) 13.6 10.0-50.0 % Monocytes (%) (Auto) 10.9 0.0-12.0 % Eosinophils (%) (Auto) 0.5 0.0-7.0 % Basophils (%) (Auto) 0.4 0.0-2.0 % Neutrophils # (Auto) 3.5 1.6-8.6 10 ^3/uL Lymphocytes # (Auto) 0.6 0.4-5.4 10 ^3/uL Monocytes # (Auto) 0.5 0-1.3 10 ^3/uL Eosinophils # (Auto) 0 0-0.8 10 ^3/uL Basophils # (Auto) 0 0-0.2 10 ^3/uL Nucleated Red Blood Cells 0.0 % Platelet Estimate [place] Large Platelets Hypochromasia (manual) Moderate Microcytosis Marked Stomatocytes Sodium Level 141 136-145 mmol/L Potassium Level 4.0 3.5-5.1 mmol/L Chloride Level 106 98-107 mmol/L Carbon Dioxide Level 29 20-31 mmol/L Anion Gap 6 5-15 Blood Urea Nitrogen 17 9-23 mg/dL Creatinine 1.10 0.700-1.30 mg/dL Glomerular Filtration Rate Calc 90 >90 mL/min BUN/Creatinine Ratio 15.5 10.0-20.0 Serum Glucose 100 74-106 mg/dL Calcium Level 9.3 8.7-10.4 mg/dL Total Bilirubin 0.4 0.2-1.0 mg/dL Aspartate Amino Transferase (AST) < 8 L 13-40 U/L Alanine Aminotransferase (ALT) 20 7-40 U/L Alkaline Phosphatase 68 46-116 U/L Total Protein 7.1 5.7-8.2 g/dL Albumin 4.5 3.2-4.8 g/dL Lipase 38 12-53 U/L Assessment/Plan Assessment/Plan Assessment Acute colitis Acute abdominal pain Mild anemia Plan Admit the patient to [facility] to the hospitalist GI consultation Clear liquid diet Continue treatment per orders. Plan discussed with: Patient My Orders Orders - DURGA SANTOS Procedure Category Date Status Time Clear Liq Diet DIET 07/31/24 Transmitted Breakfast * Gi [facility] [employer]ne[employer] Electric[employer] CONS 07/30/24 Transmitted 19:07 Pantoprazole Tablet PHA 07/31/24 In Process (Protonix Tablet) 06:00 Admit ADMIT 07/30/24 Transmitted 19:07 Hydrocodone-Acet PHA 07/30/24 In Process 5/325mg Tab ([place] 19:15 Ondansetron Hcl PHA 07/30/24 In Process (Zofran) 19:15 Complete Blood Count LAB 07/31/24 Verified 04:00 Condition: Stable ROCIO 07/30/24 In Process 19:07 Acetaminophen Tablet PHA 07/30/24 In Process (Tylenol Tablet) 19:15 Bedrest With Bathroom ROCIO 07/30/24 In Process Privileg 19:07 Basic Metabolic Panel LAB 07/31/24 Verified 04:00 Stool Occult Blood LAB 07/30/24 Transmitted 21:39 Stool Bacterial BRADY 07/30/24 Transmitted Culture 21:39 Clostridium Difficile BRADY 07/30/24 Transmitted Toxin 21:39 Date of Service: Jul 30, 2024 Billing Provider: DURGA SANTOS Common Visit Codes: [id number] INP/OBS CARE (HIGH) DURGA SANTOS Jul 30, 2024 21:55
[2024-07-30] MEDS: levoFLOXacin 500MG 100 ML IV ONE (21:58)
[2024-07-30] MEDS ORDERED: metroNIDAZOLE 500MG/100ML 100 ML IV SCH (22:00)
[2024-07-30] MEDS: ACETAMINOPHEN 325 MG TAB PO PRN (22:21)
[2024-07-30 23:45] VITALS: BP 116/68; PULSE 62; RESP 17; TEMP 97.6; O2SAT 94
[2024-07-31] VITALS (8 sets, daily range): BP systolic 102–121; BP diastolic 36–68; PULSE 62–87; RESP 17–20; TEMP 97.6–98.1; O2SAT 94–99
[2024-07-31] MEDS: PANTOPRAZOLE 40 MG TAB PO SCH (05:07)
[2024-07-31 06:14] LABS: Basophils # (auto) 0 10 ^3/uL (0-0.2); Eosinophils # (auto) 0.1 10 ^3/uL (0-0.8); Monocytes # (auto) 0.9 10 ^3/uL (0-1.3)
[2024-07-31 06:16] LABS: Basophils % (auto) 0.7 % (0.0-2.0); Eosinophils % (auto) 2.3 % (0.0-7.0); Hematocrit 27.4 % (41.0-53.0); Hemoglobin 8.8 g/dL (13.5-17.5); Lymphocytes # (auto) 1.6 10 ^3/uL (0.4-5.4); Lymphocytes % (auto) 32.5 % (10.0-50.0); Mean Corpuscular Hemoglobin 21.5 pg (28.0-32.0); Mean Corpuscular Hgb Conc. 32.2 g/dL (32.0-36.0); Mean Corpuscular Volume 66.6 fL (80.0-100.0); Neutrophils # (auto) 2.4 10 ^3/uL (1.6-8.6); Neutrophils % (auto) 47.5 % (37.0-80.0); Nucleated Red Blood Cells % 0.2 %; Platelet Count (auto) 345 10^3/uL (140-450); Red Blood Cells 4.11 10^6/uL (4.5-5.90); Red Cell Distribution Width 19.1 % (11.8-14.3); White Blood Cell 5.1 10^3/uL (4.4-10.8)
[2024-07-31 06:18] LABS: Anion Gap 6 (5-15); Carbon Dioxide 29 mmol/L (20-31); Chloride 106 mmol/L (98-107); Potassium 3.9 mmol/L (3.5-5.1); Sodium 141 mmol/L (136-145)
[2024-07-31 06:19] LABS: Calcium 8.9 mg/dL (8.7-10.4)
[2024-07-31 06:24] LABS: BUN/Creatinine Ratio 15.7 (10.0-20.0); Blood Urea Nitrogen 18 mg/dL (9-23); Glucose 86 mg/dL (74-106)
[2024-07-31 06:48] LABS: Hypochromia Moderate; Platelet Estimate Adequate
[2024-07-31] MEDS: levoFLOXacin 500MG 100 ML IV SCH (10:36)
--- NOTE | 2024-07-31 14:27 | MEDREC ---
COUNT INCLUDES THE [facility] ASP Intervention Section I COUNT INCLUDES THE [facility] ASP Intervention: Review courses of therapy (PATIENT IS ADMITTED DUE TO ABDOMINAL PAIN AND ACUTE COLITIS. PATIENT IS ALLERGIC TO METRONIDAZOLE. CLINDAMYCIN HAS BLACKK BOX WARNING OF CAUSING SEVERE AND POSSIBLY FATAL COLITIS PLEASE CONSIDER SWITCHING LEVOFLOXACIN AND CLINDAMYCIN TO ZOSYN (COVER ANAEROBES AND GRAM NEGATIVE)) ANNMARIE GARVEY [facility] Jul 31, 2024 14:27
--- NOTE | 2024-07-31 14:36 | DVHINCON2 ---
Date of service: Jul 31, 2024 Referring Physician Mann Reason for Consultation Abdominal pain and bloody stool History of Present Illness The patient is a 34-year-old male with a prior history of colitis based on hospital records, although the patient states that he had diverticulitis, admitted with several days of abdominal pain and bloody stool. Patient apparently has been seeing Dr. Molina in the past. He states that he was diagnosed with diverticulitis however he was given mesalamine, prednisone, and previous colonoscopy report from 2022 shows pancolitis. Patient states that since admission he is feeling better. The pain has gone away. Past Medical History Ulcerative colitis Past Surgical History Denies Family History: FH: cancer G8 FATHER Hypertension G8 FATHER Social History No significant alcohol or drug abuse Allergies: Coded Allergies: Metronidazole (Verified Allergy, Unknown, diarrhea, bloody stool, 01/02/23) Home Meds Active Scripts Prednisone (Prednisone) 20 Mg Tab, 40 MG PO DAILY, #60 MG Prov:DEMOND LOPEZ MD 01/05/23 Mesalamine (DELZICOL) 400 Mg Cap, 800 MG PO TID for 30 Days, #120 CAP 5 Refills Prov:DEMOND LOPEZ MD 01/05/23 Metronidazole (Flagyl) 500 Mg Tab, 1 TAB PO TID, #30 TAB Prov:DEMOND LOPEZ MD 01/05/23 Levofloxacin Hemihydrate (LEVAQUIN 500 MG) 500 Mg Tab, 1 TAB PO DAILY, #10 TAB Prov:DEMOND LOPEZ MD 01/05/23 Metronidazole (Flagyl) 500 Mg Tab, 1 TAB PO TID, #30 TAB Prov:DEMOND LOPEZ MD 01/05/23 Levofloxacin Hemihydrate (LEVAQUIN 500 MG) 500 Mg Tab, 1 TAB PO DAILY, #10 TAB Prov:DEMOND LOPEZ MD 01/05/23 Prednisone (Prednisone) 20 Mg Tab, 40 MG PO DAILY for 30 Days, #60 MG Prov:DEMOND LOPEZ MD 01/05/23 Mesalamine (DELZICOL) 400 Mg Cap, 800 MG PO TID, #60 CAP 5 Refills Prov:DEMOND LOPEZ MD 01/05/23 Current Medications Current Medications Medications (Trade) Dose Ordered Sig/Jeremy Route PRN Reason Start Time Stop Time Status Last Admin Metronidazole 100 ml @ 100 mls/hr Q8HR IV 07/30/24 22:00 07/30/24 20:16 DC Pantoprazole Sodium (Protonix Tablet) 40 mg DAILY@0600 PO 07/31/24 06:00 07/31/24 05:07 Acetaminophen/ Hydrocodone Bitart ([place] 5/325MG Tab) 1 tab Q4HP PRN PO MODERATE PAIN (4-6 PAIN SCALE) 07/30/24 19:15 Ondansetron HCl (Zofran) 4 mg Q4HP PRN IV NAUSEA / VOMITING 07/30/24 19:15 Acetaminophen (Tylenol Tablet) 650 mg Q6HP PRN PO PAIN SCALE 1-3 OR TEMP>100.4 07/30/24 19:15 07/30/24 22:21 Levofloxacin/ Dextrose 100 ml @ 100 mls/hr DAILY IV 07/31/24 10:00 07/31/24 10:36 Clindamycin Phosphate 50 ml @ 50 mls/hr Q8HR IV 07/31/24 14:00 Review of Systems Review of systems negative other than HPI Labs show anemia with microcytosis Vital Signs Vital Signs Date Time Temp Pulse Resp B/P (MAP) Pulse Ox O2 Delivery O2 Flow Rate FiO2 07/31/24 13:00 97.7 69 18 114/36 (62) 97 97.7 07/31/24 08:00 Room Air* 0 21 Physical Exam General: Alert and oriented x4 no distress HEENT: NC/AT EOMI PERRLA O/P clear Heart: Regular rate and rhythm Abdomen: Soft, nontender, nondistended Extremity: No clubbing cyanosis or edema Labs/Diagnostic Data Labs Test 07/31/24 05:05 07/30/24 11:23 07/30/24 10:46 Range/Units White Blood Count 5.1 4.4-10.8 10^3/uL Red Blood Count 4.11 L 4.5-5.90 10^6/uL Hemoglobin 8.8 L 13.5-17.5 g/dL Hematocrit 27.4 #L 41.0-53.0 % Mean Corpuscular Volume 66.6 L 80.0-100.0 fL Mean Corpuscular Hemoglobin 21.5 L 28.0-32.0 pg Mean Corpuscular Hemoglobin Concent 32.2 32.0-36.0 g/dL Red Cell Distribution Width 19.1 H 11.8-14.3 % Platelet Count 345 140-450 10^3/uL Mean Platelet Volume 6.7 L 6.9-10.8 fL Neutrophils (%) (Auto) 47.5 37.0-80.0 % Lymphocytes (%) (Auto) 32.5 10.0-50.0 % Monocytes (%) (Auto) 17.0 H 0.0-12.0 % Eosinophils (%) (Auto) 2.3 0.0-7.0 % Basophils (%) (Auto) 0.7 0.0-2.0 % Neutrophils # (Auto) 2.4 1.6-8.6 10 ^3/uL Lymphocytes # (Auto) 1.6 0.4-5.4 10 ^3/uL Monocytes # (Auto) 0.9 0-1.3 10 ^3/uL Eosinophils # (Auto) 0.1 0-0.8 10 ^3/uL Basophils # (Auto) 0 0-0.2 10 ^3/uL Nucleated Red Blood Cells 0.2 % Platelet Estimate Adequate Hypochromasia (manual) Moderate Microcytosis Marked Sodium Level 141 136-145 mmol/L Potassium Level 3.9 3.5-5.1 mmol/L Chloride Level 106 98-107 mmol/L Carbon Dioxide Level 29 20-31 mmol/L Anion Gap 6 5-15 Blood Urea Nitrogen 18 9-23 mg/dL Creatinine 1.15 0.700-1.30 mg/dL Glomerular Filtration Rate Calc 85 >90 mL/min BUN/Creatinine Ratio 15.7 10.0-20.0 Serum Glucose 86 74-106 mg/dL Calcium Level 8.9 8.7-10.4 mg/dL Urine Color Yellow Yellow Urine Clarity Clear Clear Urine pH 7.0 5.0-9.0 Urine Specific [place] 1.027 1.001-1.035 Urine Protein Trace H Negative Urine Ketones Negative Negative Urine Blood Negative Negative /uL Urine Nitrite Negative Negative Urine Bilirubin Negative Negative Urine Urobilinogen Normal Negative mg/dL Urine Leukocyte Esterase Negative Negative /uL Urine RBC 4 0 - 3 /hpf Urine Microscopic WBC 1 0-3 /HPF Urine Squamous Epithelial Cells None seen <5 /hpf Urine Bacteria None seen None Seen /hpf Urine Glucose Normal Normal mg/dL Large Platelets Stomatocytes Total Bilirubin 0.4 0.2-1.0 mg/dL Aspartate Amino Transferase (AST) < 8 L 13-40 U/L Alanine Aminotransferase (ALT) 20 7-40 U/L Alkaline Phosphatase 68 46-116 U/L Total Protein 7.1 5.7-8.2 g/dL Albumin 4.5 3.2-4.8 g/dL Lipase 38 12-53 U/L CT results reviewed Transverse colon and descending colon inflammation consistent with colitis Assessment 1 History of ulcerative colitis 2. Flare-up of ulcerative colitis 3. Microcytic anemia Problems(with codes): (1) Diarrhea (2) Acute ulcerative colitis (3) Abnormal finding on GI tract imaging Plan/Recommendation 1. cont with abx 2.prednisone taper 3.outpatient follow up with Dr Molina 4.Diet as tolerated 5.will d/w Dr Molina 6.will follow 7.iron supplementation 8.inpatient vs outpatient egd/colo Plan discussed with: Patient SHERI YEAGER MD Jul 31, 2024 14:36
--- NOTE | 2024-07-31 15:25 | DVHPN2 ---
Subjective Feels better. Reviewed: Care Plan, H&P, Labs, Medications, Previous Orders, Radiology Changes from previous H/P or p: No Changes Objective Vitals Vital Signs Date Time Temp Pulse Resp B/P (MAP) Pulse Ox O2 Delivery O2 Flow Rate FiO2 07/31/24 13:00 97.7 69 18 114/36 (62) 97 97.7 07/31/24 08:00 Room Air* 0 21 Intake/Output Intake and Output 07/31/24 07:00 Intake Total 840 ml Balance 840 ml Intake Oral 240 ml IV Total 600 ml General Appearance: Alert, Oriented X3, Cooperative, No acute distress HEENT: Atraumatic Lungs: Clear to auscultation Cardiovascular: Regular rate Abdomen: Normal bowel sounds, Soft Medications Current Medications Medications Dose Ordered Sig/Jeremy Route Start Time Stop Time Status Last Admin Dose Admin Pantoprazole Sodium 40 mg DAILY@0600 PO 07/31/24 06:00 07/31/24 05:07 40 MG Acetaminophen/ Hydrocodone Bitart 1 tab Q4HP PRN PO 07/30/24 19:15 Ondansetron HCl 4 mg Q4HP PRN IV 07/30/24 19:15 Acetaminophen 650 mg Q6HP PRN PO 07/30/24 19:15 07/30/24 22:21 650 MG Levofloxacin/ Dextrose 100 ml @ 100 mls/hr DAILY IV 07/31/24 10:00 07/31/24 10:36 100 MLS/HR Clindamycin Phosphate 50 ml @ 50 mls/hr Q8HR IV 07/31/24 14:00 Prednisone 60 mg DAILY PO 08/01/24 10:00 UNV Laboratory Results Laboratory Tests 07/31/24 05:05 Chemistry Test 07/31/24 05:05 Calcium Level 8.9 mg/dL (8.7-10.4) Urinalysis Test 07/30/24 11:23 Urine Color Yellow (Yellow) Urine Clarity Clear (Clear) Urine pH 7.0 (5.0-9.0) Urine Specific [place] 1.027 (1.001-1.035) Urine Protein Trace (Negative) H Urine Ketones Negative (Negative) Urine Blood Negative /uL (Negative) Urine Nitrite Negative (Negative) Urine Bilirubin Negative (Negative) Urine Urobilinogen Normal mg/dL (Negative) Urine Leukocyte Esterase Negative /uL (Negative) Urine RBC 4 /hpf (0 - 3) Urine Microscopic WBC 1 /HPF (0-3) Urine Squamous Epithelial Cells None seen /hpf (<5) Urine Bacteria None seen /hpf (None Seen) Urine Glucose Normal mg/dL (Normal) Assessment/Plan Assessment/Plan Acute transverse and descending colitis History of diverticulosis and diverticulitis Allergy to metronidazole Plan: Continue Levaquin. We will add clindamycin. We will await C diff. Further plan per orders Plan discussed with: Patient My Orders Orders - EMIR ROJO MD Procedure Category Date Status Time Clindamycin 300mg Iv PHA 07/31/24 In Process (Cleocin Iv) 14:00 Date of Service: Jul 31, 2024 Billing Provider: EMIR ROJO MD Common Visit Codes: [id number] INP/OBS CARE(HIGH) EMIR ROJO MD Jul 31, 2024 15:25
[2024-07-31] MEDS: CLINDAMYCIN 300MG IV 50 ML IV SCH (16:56)
[2024-07-31] MEDS: predniSONE 20 MG TAB PO SCH (16:56)
[2024-08-01] VITALS (7 sets, daily range): BP systolic 104–128; BP diastolic 39–64; PULSE 66–89; RESP 14–20; TEMP 97.5–98.7; O2SAT 96–99
--- NOTE | 2024-08-01 14:04 | PRN ---
Misceleneous Note Note Note August 02, 2024 Subjective: Patient is doing better, tolerating diet, occasional blood in the stool, no diarrhea Current Medications Medications (Trade) Dose Ordered Sig/Jeremy Route PRN Reason Start Time Stop Time Status Last Admin Prednisone 60 mg DAILY PO 07/31/24 15:47 08/01/24 10:45 Exam Alert and oriented x4 Regular rate a abdomen No clubbing cyanosis or edema Labs Test 08/01/24 13:07 07/31/24 05:05 07/30/24 11:23 07/30/24 10:46 Range/Units White Blood Count 5.1 4.4-10.8 10^3/uL Red Blood Count 4.11 L 4.5-5.90 10^6/uL Hemoglobin 8.8 L 13.5-17.5 g/dL Hematocrit 27.4 #L 41.0-53.0 % Mean Corpuscular Volume 66.6 L 80.0-100.0 fL Mean Corpuscular Hemoglobin 21.5 L 28.0-32.0 pg Mean Corpuscular Hemoglobin Concent 32.2 32.0-36.0 g/dL Red Cell Distribution Width 19.1 H 11.8-14.3 % Platelet Count 345 140-450 10^3/uL Mean Platelet Volume 6.7 L 6.9-10.8 fL Neutrophils (%) (Auto) 47.5 37.0-80.0 % Lymphocytes (%) (Auto) 32.5 10.0-50.0 % Monocytes (%) (Auto) 17.0 H 0.0-12.0 % Eosinophils (%) (Auto) 2.3 0.0-7.0 % Basophils (%) (Auto) 0.7 0.0-2.0 % Neutrophils # (Auto) 2.4 1.6-8.6 10 ^3/uL Lymphocytes # (Auto) 1.6 0.4-5.4 10 ^3/uL Monocytes # (Auto) 0.9 0-1.3 10 ^3/uL Eosinophils # (Auto) 0.1 0-0.8 10 ^3/uL Basophils # (Auto) 0 0-0.2 10 ^3/uL Nucleated Red Blood Cells 0.2 % Platelet Estimate Adequate Hypochromasia (manual) Moderate Microcytosis Marked Sodium Level 141 136-145 mmol/L Potassium Level 3.9 3.5-5.1 mmol/L Chloride Level 106 98-107 mmol/L Carbon Dioxide Level 29 20-31 mmol/L Anion Gap 6 5-15 Blood Urea Nitrogen 18 9-23 mg/dL Creatinine 1.15 0.700-1.30 mg/dL Glomerular Filtration Rate Calc 85 >90 mL/min BUN/Creatinine Ratio 15.7 10.0-20.0 Serum Glucose 86 74-106 mg/dL Calcium Level 8.9 8.7-10.4 mg/dL Urine Color Yellow Yellow Urine Clarity Clear Clear Urine pH 7.0 5.0-9.0 Urine Specific [place] 1.027 1.001-1.035 Urine Protein Trace H Negative Urine Ketones Negative Negative Urine Blood Negative Negative /uL Urine Nitrite Negative Negative Urine Bilirubin Negative Negative Urine Urobilinogen Normal Negative mg/dL Urine Leukocyte Esterase Negative Negative /uL Urine RBC 4 0 - 3 /hpf Urine Microscopic WBC 1 0-3 /HPF Urine Squamous Epithelial Cells None seen <5 /hpf Urine Bacteria None seen None Seen /hpf Urine Glucose Normal Normal mg/dL Large Platelets Stomatocytes Total Bilirubin 0.4 0.2-1.0 mg/dL Aspartate Amino Transferase (AST) < 8 L 13-40 U/L Alanine Aminotransferase (ALT) 20 7-40 U/L Alkaline Phosphatase 68 46-116 U/L Total Protein 7.1 5.7-8.2 g/dL Albumin 4.5 3.2-4.8 g/dL Lipase 38 12-53 U/L Impression: 1. Flare-up of ulcerativ colitis Recommendations: 1.. Prednisone, 60 mg taper for 10 days then 50 mg for 10 days and 40 mg for 10 days then 30 mg for 10 days and 20 mg for 10 days and 10 mg for 10 days then stop Mesalamine, consider biologic 2. Discharge home 3. Low-fat low residue diet 4. Follow up with SHERI Oconnell MD Aug 01, 2024 14:04
[2024-08-01 14:15] LABS: Erythrocyte Sedimentation Rate 17 mm/hr (0-20)
--- NOTE | 2024-08-01 14:17 | DVHPN2 ---
Subjective Feels better. Reviewed: Care Plan, H&P, Labs, Medications, Previous Orders, Radiology Changes from previous H/P or p: No Changes Objective Vitals Vital Signs Date Time Temp Pulse Resp B/P (MAP) Pulse Ox O2 Delivery O2 Flow Rate FiO2 08/01/24 08:06 Room Air* 0 21 08/01/24 05:00 98.2 89 19 127/61 (83) 97 98.2 Intake/Output Intake and Output 08/01/24 07:00 Intake Total 2050 ml Balance 2050 ml Intake Oral 1800 ml IV Total 250 ml # Voids 5 General Appearance: Alert, Oriented X3, Cooperative, No acute distress HEENT: Atraumatic Lungs: Clear to auscultation Cardiovascular: Regular rate Abdomen: Normal bowel sounds, Soft Medications Current Medications Medications Dose Ordered Sig/Jeremy Route Start Time Stop Time Status Last Admin Dose Admin Pantoprazole Sodium 40 mg DAILY@0600 PO 07/31/24 06:00 08/01/24 05:10 40 MG Acetaminophen/ Hydrocodone Bitart 1 tab Q4HP PRN PO 07/30/24 19:15 Ondansetron HCl 4 mg Q4HP PRN IV 07/30/24 19:15 Acetaminophen 650 mg Q6HP PRN PO 07/30/24 19:15 07/30/24 22:21 650 MG Levofloxacin/ Dextrose 100 ml @ 100 mls/hr DAILY IV 07/31/24 10:00 08/01/24 10:45 100 MLS/HR Clindamycin Phosphate 50 ml @ 50 mls/hr Q8HR IV 07/31/24 14:00 08/01/24 05:11 50 MLS/HR Prednisone 60 mg DAILY PO 07/31/24 15:47 08/01/24 10:45 60 MG Laboratory Results Laboratory Tests 07/31/24 05:05 Urinalysis Test 07/30/24 11:23 Urine Color Yellow (Yellow) Urine Clarity Clear (Clear) Urine pH 7.0 (5.0-9.0) Urine Specific [place] 1.027 (1.001-1.035) Urine Protein Trace (Negative) H Urine Ketones Negative (Negative) Urine Blood Negative /uL (Negative) Urine Nitrite Negative (Negative) Urine Bilirubin Negative (Negative) Urine Urobilinogen Normal mg/dL (Negative) Urine Leukocyte Esterase Negative /uL (Negative) Urine RBC 4 /hpf (0 - 3) Urine Microscopic WBC 1 /HPF (0-3) Urine Squamous Epithelial Cells None seen /hpf (<5) Urine Bacteria None seen /hpf (None Seen) Urine Glucose Normal mg/dL (Normal) Assessment/Plan Assessment/Plan Acute transverse and descending colitis Possible ulcerative colitis flare-up History of ulcerative colitis two years ago History of diverticulosis and diverticulitis Allergy to metronidazole Anemia/possible acute loss Plan: Check H&H. Started on prednisone by GI. If H&H stable possible home later today or tomorrow Plan discussed with: Patient My Orders Orders - EMIR ROJO MD Procedure Category Date Status Time Hemoglobin & LAB 08/01/24 Logged Hematocrit 14:14 Date of Service: Aug 01, 2024 Billing Provider: EMIR ROJO MD Common Visit Codes: [id number] INP/OBS CARE(HIGH) EMIR ROJO MD Aug 01, 2024 14:17
[2024-08-01 15:23] LABS: Hemoglobin 10.3 g/dL (13.5-17.5)
[2024-08-02] VITALS (7 sets, daily range): BP systolic 101–143; BP diastolic 49–87; PULSE 60–83; RESP 14–19; TEMP 97.8–98.4; O2SAT 96–99
[2024-08-02] MEDS: HYDROcodone-ACET 5/325MG TAB PO PRN (05:30)
[2024-08-02] MEDS ORDERED: GASTROGRAFIN 30 ML SOL ONE (12:08)
[2024-08-02] MEDS ORDERED: IOHEXOL 300 MG/ML 100ML BOTTLE IJ ONE (14:30)
--- NOTE | 2024-08-02 15:14 | DVH ---
Exam: CT CT ABD PELVIS W CON-ORAL IV History: colitis COMPARISON: CT CT ABD PELVIS W CON-ORAL IV on DOS: 01/02/23 Technique: Multidetector spiral CT of the abdomen and pelvis was performed from lung bases to pubic symphysis. Intravenous contrast was administered during this examination. Portal venous imaging was obtained. Axial, coronal and sagittal multiplanar reformats were performed by the technologist on a separate workstation. Radiation Dose : Abdomen/Pelvis: CTDIvol 9.1 mGy, DLP 578.21 mGy*cm. CONTRAST: Type of contrast: Omni 300 Contrast injected: 100 mL Findings: Lung Bases: No acute or significant lung base finding. Normal heart size. No pleural or pericardial effusion. Liver: The liver is normal in size. No focal lesions. Normal hepatic vascular enhancement. Gallbladder and biliary Tree: Unremarkable Spleen: Unremarkable Pancreas: The pancreas is normal in appearance without focal lesions or abnormal enhancement. Adrenal Glands: Unremarkable Kidneys: No hydronephrosis. Bladder: Unremarkable Bowel: The stomach is grossly normal in appearance. Small bowel and colon are normal in caliber and d istribution. Normal appendix is visualized in the right lower quadrant without findings of appendicit is. Wall thickening of the transverse and descending colon similar to prior. Ascites: Absent Lymphadenopathy: No mesenteric, retroperitoneal or periportal lymphadenopathy. Abdominal wall and Mesentery: Unremarkable. Vasculature: The visualized abdominal aorta is normal in size and caliber. Abdominal and pelvic vess els demonstrate normal enhancement. Pelvic Organs: Unremarkable Musculoskeletal: No aggressive focal bony lesions, acute fractures or dislocation. IMPRESSION: 1. Wall thickening of the transverse and descending colon similar to prior again raising concern for colitis. Consider Cdiff colitis and inflammatory etiologies. Clinical correlation and continued fol low-up is recommended. Consider colonoscopy after acute event. Radiation optimization: All CT scans at this facility use at least one of these dose optimization [place] hniques: Automated exposure control mA and/or kV adjustment per patient size (includes targeted exams where dose is matched to clinical indication) or iterative reconstruction. HS:Y
--- NOTE | 2024-08-02 21:05 | DVHPN2 ---
Progress Note - Dictate Date Seen: Aug 02, 2024 Medical Necessity Reason Pt with a Central, PICC or Fol: No Subjective Patient seen at bedside Patient was starting to feel better, however this morning he had more rectal bleeding and some abdominal cramping Patient was maintaining himself on mesalamine would intermittently take a prednisone taper He is scheduled for a follow up visit my office in September Last recorded colonoscopy was in December 2022 Operative Report DATE OF OPERATION: 01/03/23 PROCEDURE: Colonoscopy with biopsy. PREOPERATIVE INDICATION: The patient is a 32 -year-old male undergoing colonoscopy for rectal bleeding diarrhea and abnormal finding GI tract imaging POSTOPERATIVE DIAGNOSES: 1. Moderate to severe ulcerative pancolitis with hyperemia erythema mucosal edema superficial exudates vital signs Vital Sign Date Time Temp Pulse Resp B/P (MAP) Pulse Ox O2 Delivery O2 Flow Rate FiO2 08/02/24 17:00 98.1 70 18 112/57 (75) 97 98.1 08/02/24 08:17 Room Air* 0 21 Total Intake and Output 08/01/24 08/01/24 08/02/24 15:00 23:00 07:00 Intake Total 118 ml 450 ml 750 ml Balance 118 ml 450 ml 750 ml medications Current Medications Medications Dose Ordered Sig/Jeremy Route Start Time Stop Time Status Last Admin Dose Admin Pantoprazole Sodium 40 mg DAILY@0600 PO 07/31/24 06:00 08/02/24 05:21 40 MG Acetaminophen/ Hydrocodone Bitart 1 tab Q4HP PRN PO 07/30/24 19:15 08/02/24 05:30 1 TAB Ondansetron HCl 4 mg Q4HP PRN IV 07/30/24 19:15 Acetaminophen 650 mg Q6HP PRN PO 07/30/24 19:15 08/01/24 14:51 650 MG Levofloxacin/ Dextrose 100 ml @ 100 mls/hr DAILY IV 07/31/24 10:00 08/02/24 08:35 100 MLS/HR Clindamycin Phosphate 50 ml @ 50 mls/hr Q8HR IV 07/31/24 14:00 08/02/24 14:31 50 MLS/HR Prednisone 60 mg DAILY PO 07/31/24 15:47 08/02/24 08:35 60 MG objective General Appearance: Alert, Oriented X3, Cooperative, mild distress HEENT: Atraumatic Lungs: Clear to auscultation Cardiovascular: Regular rate Abdomen: Normal bowel sounds, Soft Ext no c/c/e laboratory and microbiology Laboratory Tests 08/01/24 13:07 07/31/24 05:05 Test 07/31/24 05:05 Range/Units Serum Glucose 86 74-106 mg/dL Problems(with codes): (1) Abnormal finding on GI tract imaging (2) Acute ulcerative colitis (3) Diarrhea (4) Colitis (5) Intractable abdominal pain Prognosis Plan Patient is currently on IV antibiotics I will change his prednisone to methylprednisone 40 mg IV q.12 hours Patient can be put back on oral prednisone prior to discharge I will add mesalamine 800 mg p.o. three times a day Clear liquid diet for now advance to full liquid once symptoms improve Patient has a scheduled appointment with me in early September ; we will try to move up his appointment Patient needs to follow up in my office to consider further treatment with biologicals and to decide about repeat colonoscopy Dietary Evaluation Review Recommendations by RD: Dietary education by RD Comments: 1) Enourage optimal PO intake 2) Advance to low-fat, low-fiber diet as quickly and medically feasible as possible. *Current research supports advancing PO diet as tolerated and and only restricting fiber during exacerbation of IBD*. 3) Refer to outpatient RD for dietary education r/t IBD. Durring remission, encourage patient to increase her intake of antioxidants - focus on dark colored fruits and vegetables such as black grapes, eggplant, berries, cherries, green leafy vegetables; and omega-3 fatty acids - cold water fish such as salmon, tuna, sardines, etc. and walnuts, patricia seeds, and flax seeds. 4) Follow-up with gastroenterology 5) Continue to monitor I&O, labs, and skin integrity Expected Outcomes/Goals: 1) appetite and labs to improve 2) diet to advance 2) f/u in 2-3 days Plan discussed with: Patient, Other (Nurse) MARIA D DOMINGUEZ MD Aug 02, 2024 21:05
--- NOTE | 2024-08-02 21:12 | DVHPN2 ---
Subjective had some rectal bleeding this morning Reviewed: Care Plan, H&P, Labs, Medications, Previous Orders, Radiology Changes from previous H/P or p: No Changes Objective Vitals Vital Signs Date Time Temp Pulse Resp B/P (MAP) Pulse Ox O2 Delivery O2 Flow Rate FiO2 08/02/24 17:00 98.1 70 18 112/57 (75) 97 98.1 08/02/24 08:17 Room Air* 0 21 Intake/Output Intake and Output 08/02/24 06:59 Intake Total 1318 ml Balance 1318 ml Intake Oral 1218 ml IV Total 100 ml # Voids 5 General Appearance: Alert, Oriented X3, Cooperative, No acute distress HEENT: Atraumatic Lungs: Clear to auscultation Cardiovascular: Regular rate Abdomen: Normal bowel sounds, Soft Medications Current Medications Medications Dose Ordered Sig/Jeremy Route Start Time Stop Time Status Last Admin Dose Admin Pantoprazole Sodium 40 mg DAILY@0600 PO 07/31/24 06:00 08/02/24 05:21 40 MG Acetaminophen/ Hydrocodone Bitart 1 tab Q4HP PRN PO 07/30/24 19:15 08/02/24 05:30 1 TAB Ondansetron HCl 4 mg Q4HP PRN IV 07/30/24 19:15 Acetaminophen 650 mg Q6HP PRN PO 07/30/24 19:15 08/01/24 14:51 650 MG Levofloxacin/ Dextrose 100 ml @ 100 mls/hr DAILY IV 07/31/24 10:00 08/02/24 08:35 100 MLS/HR Clindamycin Phosphate 50 ml @ 50 mls/hr Q8HR IV 07/31/24 14:00 08/02/24 14:31 50 MLS/HR Prednisone 60 mg DAILY PO 07/31/24 15:47 08/02/24 08:35 60 MG Mesalamine 800 mg TID PO 08/02/24 22:00 UNV Methylprednisolone Sodium Succinate 40 mg BID IV 08/02/24 22:00 UNV Laboratory Results Laboratory Tests 07/31/24 05:05 08/01/24 13:07 Urinalysis Test 07/30/24 11:23 Urine Color Yellow (Yellow) Urine Clarity Clear (Clear) Urine pH 7.0 (5.0-9.0) Urine Specific [place] 1.027 (1.001-1.035) Urine Protein Trace (Negative) H Urine Ketones Negative (Negative) Urine Blood Negative /uL (Negative) Urine Nitrite Negative (Negative) Urine Bilirubin Negative (Negative) Urine Urobilinogen Normal mg/dL (Negative) Urine Leukocyte Esterase Negative /uL (Negative) Urine RBC 4 /hpf (0 - 3) Urine Microscopic WBC 1 /HPF (0-3) Urine Squamous Epithelial Cells None seen /hpf (<5) Urine Bacteria None seen /hpf (None Seen) Urine Glucose Normal mg/dL (Normal) Assessment/Plan Assessment/Plan Acute transverse and descending colitis Possible ulcerative colitis flare-up History of ulcerative colitis two years ago History of diverticulosis and diverticulitis Allergy to metronidazole Anemia/possible acute loss Plan: GI consulted and appreciate recs, started IV steroids and increased mesalamine Liquid diet Repeat CT today Plan discussed with: Patient My Orders Orders - CANDIDA GARCÍA MD Procedure Category Date Status Time Ct Abd Pelvis W CT 08/02/24 Resulted Con-Oral & Iv 12:02 Date of Service: Aug 02, 2024 Billing Provider: CANDIDA GARCÍA MD Common Visit Codes: [id number] INP/OBS CARE(HIGH) CANDIDA GARCÍA MD Aug 02, 2024 21:12
[2024-08-02] MEDS: methylPREDNISolone SOD SUCC 40 MG/ML VL IV SCH (22:26)
[2024-08-03 01:00] VITALS: BP 113/54; PULSE 81; RESP 19; TEMP 97.8; O2SAT 96
[2024-08-03 05:00] VITALS: BP 101/51; PULSE 74; RESP 16; TEMP 98.6; O2SAT 100
[2024-08-03 08:00] VITALS: PULSE 67; RESP 18
[2024-08-03 09:00] VITALS: BP 111/53; PULSE 65; RESP 19; TEMP 98.1; O2SAT 98
[2024-08-03] MEDS ORDERED: MESA400C PO (12:27)
[2024-08-03 13:00] VITALS: BP 116/51; PULSE 74; RESP 19; TEMP 98; O2SAT 98
[2024-08-03] MEDS: MESALAMINE 400mg Delayed Release Cap PO SCH (14:00)
[2024-08-03 17:00] VITALS: BP 128/68; PULSE 80; RESP 18; TEMP 98.6; O2SAT 98
--- NOTE | 2024-08-03 19:07 | DVHPN2 ---
Progress Note - Dictate Date Seen: Aug 03, 2024 (Time of visit 5 pm) Medical Necessity Reason Pt with a Central, PICC or Fol: No Subjective Patient seen at bedside Patient was starting to feel better,no further BM today Patient was maintaining himself on mesalamine would intermittently take a prednisone taper He is scheduled for a follow up visit my office in September Last recorded colonoscopy was in December 2022 Operative Report DATE OF OPERATION: 01/03/23 PROCEDURE: Colonoscopy with biopsy. PREOPERATIVE INDICATION: The patient is a 32 -year-old male undergoing colonoscopy for rectal bleeding diarrhea and abnormal finding GI tract imaging POSTOPERATIVE DIAGNOSES: 1. Moderate to severe ulcerative pancolitis with hyperemia erythema mucosal edema superficial exudates vital signs Vital Sign Date Time Temp Pulse Resp B/P (MAP) Pulse Ox O2 Delivery O2 Flow Rate FiO2 08/03/24 17:00 98.6 80 18 128/68 (88) 98 98.6 08/03/24 08:00 Room Air* 0 21 Total Intake and Output 08/02/24 08/02/24 08/03/24 15:00 23:00 07:00 Intake Total 100 ml 710 ml 200 ml Balance 100 ml 710 ml 200 ml objective General Appearance: Alert, Oriented X3, Cooperative, mild distress HEENT: Atraumatic Lungs: Clear to auscultation Cardiovascular: Regular rate Abdomen: Normal bowel sounds, Soft Ext no c/c/e laboratory and microbiology Laboratory Tests 08/01/24 13:07 07/31/24 05:05 Test 07/31/24 05:05 Range/Units Serum Glucose 86 74-106 mg/dL Repeat CT Abd IMPRESSION: 1. Wall thickening of the transverse and descending colon similar to prior again raising concern for colitis. Consider Cdiff colitis and inflammatory etiologies. Clinical correlation and continued follow-up is recommended. Consider colonoscopy after acute event. Problems(with codes): (1) Abnormal finding on GI tract imaging (2) Acute ulcerative colitis (3) Diarrhea (4) Colitis (5) Intractable abdominal pain Prognosis Plan Discharge planning is in progress Patient can be put back on oral prednisone prior to discharge I will add mesalamine 800 mg p.o. three times a day Advance diet as tolerated Patient has a scheduled appointment with me in early September ; we will try to move up his appointment Patient needs to follow up in my office to consider further treatment with biologicals and to decide about repeat colonoscopy Dietary Evaluation Review Recommendations by RD: Dietary education by RD Comments: 1) Enourage optimal PO intake 2) Advance to low-fat, low-fiber diet as quickly and medically feasible as possible. *Current research supports advancing PO diet as tolerated and and only restricting fiber during exacerbation of IBD*. 3) Refer to outpatient RD for dietary education r/t IBD. Durring remission, encourage patient to increase her intake of antioxidants - focus on dark colored fruits and vegetables such as black grapes, eggplant, berries, cherries, green leafy vegetables; and omega-3 fatty acids - cold water fish such as salmon, tuna, sardines, etc. and walnuts, patricia seeds, and flax seeds. 4) Follow-up with gastroenterology 5) Continue to monitor I&O, labs, and skin integrity Expected Outcomes/Goals: 1) appetite and labs to improve 2) diet to advance 2) f/u in 2-3 days Plan discussed with: Patient MARIA D DOMINGUEZ MD Aug 03, 2024 19:07
== END 2024-08-03 17:00 | disposition home or self-care (01) | DRG 245 ==
LOC: ER 10:09 → OVERFLOW 19:07 → EAST 19:10
PROVIDERS: ADMIT Hospitalist; ATTEND Hospitalist
DX: K51.90 Ulcerative colitis, unspecified, without complications (principal); D62 Acute posthemorrhagic anemia; D50.9 Iron deficiency anemia, unspecified; K52.9 Noninfective gastroenteritis and colitis, unspecified; Z82.49 Family history of ischemic heart disease and other diseases of the circulatory system; Z88.3 Allergy status to other anti-infective agents; Z88.8 Allergy status to other drugs, medicaments and biological substances; Z79.899 Other long term (current) drug therapy
CPT/HCPCS: 36415; 74176; 74177; 80048; 80053; 81001; 82270; 83690; 85014; 85018; 85025; 85652; 86141; 86850; 86900; 86901; 96361; 96374; 96375; G0378; J1956; J2405; J3490

== ENCOUNTER 2024-08-23 19:24 | Emergency (ER) | payer MEDICAID ==
[~2024-08-23] VITALS: Ht 175.3 cm; Wt 85.0 kg
[2024-08-23 19:50] VITALS: BP 142/95; PULSE 101; RESP 18; TEMP 98.3; O2SAT 98
[2024-08-23] MEDS ORDERED: DOXY100C79 PO (22:56)
[2024-08-23] MEDS ORDERED: ACET500T58 PO (22:57)
--- NOTE | 2024-08-23 22:57 | ED.PDOC ---
History of Present Illness(SKN HPI Comments 34-year-old male presents to ER for wound check. Patient reports that he has had a "cyst" to right groin x3 weeks that he states popped and started leaking bloody/purulent drainage x1 day and presents to ER today for wound check. He rates his current pain a 5/10 to wound of right groin without radiation. Denies being on any current antibiotics. Patient presents to ER ambulatory on arrival, with steady gait, in no distress. Denies fever, body aches, chills, night sweats or any further symptoms/complaints Chief Complaint: Wound Check Time Seen by MD: 20:35 Primary Care Provider: UNKNOWN History of Present Illness: Nurses Notes, Medications, Allergies Allergies: Coded Allergies: Metronidazole (Verified Allergy, Unknown, diarrhea, bloody stool, 01/02/23) Home Meds Active Scripts Acetaminophen (Acetaminophen) 500 Mg Tab, 500 MG PO Q4HPRN, #30 TAB 0 Refills Prov:CELESTE VARGHESE 08/23/24 Doxycycline (Monohydrate) (Doxycycline) 100 Mg Cap, 100 MG PO BID for 7 Days, #14 CAP 0 Refills Prov:CELESTE VARGHESE 08/23/24 Mesalamine (DELZICOL) 400 Mg Cap, 800 MG PO TID for 90 Days, #60 CAP 5 Refills Prov:CANDIDA GARCÍA MD 08/03/24 Prednisone (Prednisone) 20 Mg Tab, 40 MG PO DAILY, #60 MG Prov:DEMOND LOPEZ MD 01/05/23 Metronidazole (Flagyl) 500 Mg Tab, 1 TAB PO TID, #30 TAB Prov:DEMOND LOPEZ MD 01/05/23 Levofloxacin Hemihydrate (LEVAQUIN 500 MG) 500 Mg Tab, 1 TAB PO DAILY, #10 TAB Prov:DEMOND LOPEZ MD 01/05/23 Metronidazole (Flagyl) 500 Mg Tab, 1 TAB PO TID, #30 TAB Prov:DEMOND LOPEZ MD 01/05/23 Levofloxacin Hemihydrate (LEVAQUIN 500 MG) 500 Mg Tab, 1 TAB PO DAILY, #10 TAB Prov:DEMOND LOPEZ MD 01/05/23 Prednisone (Prednisone) 20 Mg Tab, 40 MG PO DAILY for 30 Days, #60 MG Prov:DEMOND LOPEZ MD 01/05/23 Information Source: Patient Mode of Arrival: Ambulatory Tetanus: UTD Past Medical History Past Medical History (Other): ulcerative colitis Diverticulosis Surgical History: Denies all surgeries Family History Family History: Family hx of heart latasha Family History (Other): Parkinsonism Social History Smoker: Non-Smoker Alcohol: Denies ETOH Use Drugs: Denies Drug Use Lives In: Home Constitutional: denies: chills, diaphoresis, fatigue, fever, malaise, sweats, weakness, others EENTM: denies: blurred vision, double vision, ear bleeding, ear discharge, ear drainage, ear pain, ear ringing, eye pain, eye redness, hearing loss, mouth pain, mouth swelling, nasal discharge, nose bleeding, nose congestion, nose pain, photophobia, tearing, throat pain, throat swelling, voice changes, others Respiratory: denies: cough, hemoptysis, orthopnea, SOB at rest, shortness of breath, SOB with excertion, stridor, wheezing, others Cardiovascular: denies: chest pain, dizzy spells, diaphoresis, Dyspnea on exertion, edema, irregular heart beat, left arm pain, lightheadedness, pal pitations, PND, syncope, others Gastrointestinal: denies: abdomen distended, abdominal pain, blood streaked bowels, constipated, diarrhea, dysphagia, difficulty swallowing, hematemesis, melena, nausea, poor appetite, poor fluid intake, rectal bleeding, rectal pain, vomiting, others Genitourinary: denies: burning, dysuria, flank pain, frequency, hematuria, incontinence, penile discharge, penile sore, pain, testicle pain, testicle swelling, urgency, others Neurological: denies: dizziness, fainting, headache, left sided numbness, left sided weakness, numbness, paresthesia, pre-existing deficit, right sided numbness, right sided weakness, seizure, speech problems, tingling, tremors, weakness, others Musculoskeletal: denies: back pain, gout, joint pain, joint swelling, muscle pain, muscle stiffness, neck pain, others Integumetry: reports: others (As stated in HPI) Allergic/Immunocompromised: denies: Difficulty Healing, Frequent Infections, Hives, Itching, others Hematologic/Lymphatic: denies: anemia, blood clots, easy bleeding, easy bruising, swollen glands, others Endocrine: denies: excessive hunger, excessive sweating, excessive thirst, excessive urination, flushing, intolerance to cold, intolerance to heat, unexplained weight gain, unexplained weight loss, others Psychiatric: denies: anxiety, bipolar disorder, depression, hopeless, panic disorder, schizophrenia, sleepless, suicidal, others Physical Exam General Appearance: No Apparent Distress HEENT: PERRL/EOMI Neck: Full Range of Motion, Non-Tender, Normal Respiratory: Chest Non-Tender, Lungs Clear, No Accessory Muscle Use, No Respiratory Distress, Normal Breath Sounds Cardiovascular: No Murmur, No Gallop, Regular Rate/Rhythm Breast Exam: Deferred Gastrointestinal: Non Tender, No Pulsatile Mass, Soft Genitalia: Deferred Pelvic: Deferred Rectal: Deferred Extremities: Normal capillary refill, Normal range of motion Neurologic: Alert, 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 No drainage/fluctuance/red streaking/tunneling/further skin changes noted. Pulses intact. Gait intact without abnormality) Peripheral Pulses: 2+ femoral (R), 2+ femoral (L), 2+ dorsalis pedis (R), 2+ dorsalis pedis (L) Lymphatic: No Adenopathy Was a procedure done? Was a procedure done?: No Sedation Sedation?: No Differential Diagnosis (INTG) Differential Diagnosis: Abrasion Differential Diagnosis: Abscess Differential Diagnosis: Puncture Wound X-Ray, Labs, Meds, VS Vital Signs Date Time Temp Pulse Resp B/P (MAP) Pulse Ox O2 Delivery O2 Flow Rate FiO2 08/23/24 19:50 98.3 101 18 142/95 (111) 98 98.3 Rocephin 1 g IM ordered Wound cleaning performed at bedside Wound care/cleaning discussed and advised Previous chart history reviewed Advised to follow up with PCP in 1-2 days Patient verbalized understanding and agreeable with current plan of care Advised to return to ER immediately if symptoms worsen Time of 1ST Reevaluation: 22:24 Reevaluation 1ST: N/A Patient Education/Counseling: Diagnosis, Treatment, Prognosis, Need For Follow Up Family Education/Counseling: No Family Present Departure 1 Departure Time of Disposition: 22:52 Impression: Primary Impression: Cellulitis of groin, right Disposition: 01 HOME / SELF CARE / HOMELESS Condition: Stable e-Prescriptions Acetaminophen (Acetaminophen) 500 Mg Tab 500 MG PO Q4HPRN, #30 TAB 0 Refills Prov: CELESTE VARGHESE 08/23/24 Doxycycline (Monohydrate) (Doxycycline) 100 Mg Cap 100 MG PO BID for 7 Days, #14 CAP 0 Refills Prov: CELESTE VARGHESE 08/23/24 Discharged With: Self Critical Care Note Critical Care Time?: No Stability Stability form required: No Heart Score Heart Score: Heart Score Response (Comments) Value History N/A 0 EKG N/A 0 Age N/A 0 Risk Factors N/A 0 Troponin N/A 0 Total 0 CELESTE VARGHESE Aug 23, 2024 22:57
[2024-08-23] MEDS: cefTRIAXone SOD 1,000 MG VL IM ONE (23:34)
== END 2024-08-23 23:49 | disposition home or self-care (01) ==
LOC: ER 19:24
DX: L03.314 Cellulitis of groin (principal); Z88.1 Allergy status to other antibiotic agents; Z79.52 Long term (current) use of systemic steroids
CPT/HCPCS: 96372; 99283; J0696